=== PATIENT | male | born 1980 | race Caucasian/White ===

== ENCOUNTER 2017-04-25 06:16 | Emergency (ER) | payer MEDICAID ==
[2017-04-25 07:44] LABS: BASOPHIL % 0.6 % (0-2); PLATELET COUNT 338 x10^3mcL (130-400); RED CELL DISTRIBUTION WIDTH 14.3 % (11.5-14.5)
[2017-04-25 07:51] LABS: CALCIUM 8.8 mg/dL (8.5-10.1); CARBON DIOXIDE 31.2 mmol/L (21-32); CHLORIDE SERUM 100 mmol/L (98-107); CREATININE SERUM 1.1 mg/dL (0.7-1.3); GFR1 > 60 mL/min; GLUCOSE SERUM 114 mg/dL (74-106); POTASSIUM SERUM 3.6 mmol/L (3.5-5.1); SODIUM SERUM 140 mmol/L (136-145)
[2017-04-25 09:00] VITALS: BP 139/99
== END 2017-04-25 09:00 | disposition home or self-care (01) ==
LOC: ED 06:16
PROVIDERS: Emergency Medicine
DX: K52.9 Noninfective gastroenteritis and colitis, unspecified (principal); Z88.0 Allergy status to penicillin
CPT/HCPCS: 36415; J1885

== ENCOUNTER 2017-09-12 22:27 | Emergency (ER) | payer MEDICAID ==
[~2017-09-12] VITALS: Ht 180.3 cm; Wt 81.6 kg
[2017-09-12 23:21] VITALS: BP 124/67
== END 2017-09-12 23:21 | disposition home or self-care (01) ==
LOC: ED 22:27
DX: S39.012A Strain of muscle, fascia and tendon of lower back, initial encounter (principal); Z90.49 Acquired absence of other specified parts of digestive tract; Z88.0 Allergy status to penicillin; F17.210 Nicotine dependence, cigarettes, uncomplicated; X58.XXXA Exposure to other specified factors, initial encounter; Y93.I9 Activity, other involving external motion; Y92.488 Other paved roadways as the place of occurrence of the external cause; Y99.8 Other external cause status
CPT/HCPCS: 99406; J1885; J2270

== ENCOUNTER 2018-04-06 05:00 | Emergency (ER) | payer MEDICAID ==
[~2018-04-06] VITALS: Ht 180.3 cm; Wt 80.3 kg
[2018-04-06 05:12] VITALS: Ht 180.3 cm; Wt 80.3 kg
[2018-04-06 08:18] VITALS: BP 139/89
== END 2018-04-06 08:18 | disposition home or self-care (01) ==
LOC: ED 05:00
DX: S86.912A Strain of unspecified muscle(s) and tendon(s) at lower leg level, left leg, initial encounter (principal); S39.012A Strain of muscle, fascia and tendon of lower back, initial encounter; Z90.89 Acquired absence of other organs; Z88.0 Allergy status to penicillin; V49.9XXA Car occupant (driver) (passenger) injured in unspecified traffic accident, initial encounter; Y93.55 Activity, bike riding; Y92.830 Public park as the place of occurrence of the external cause; Y99.8 Other external cause status
CPT/HCPCS: J1885

== ENCOUNTER 2018-07-02 23:18 | Emergency (ER) | payer MEDICAID ==
[~2018-07-02] VITALS: Ht 180.3 cm; Wt 78.9 kg
[2018-07-02 23:24] VITALS: Ht 180.3 cm; Wt 78.9 kg
[2018-07-03 00:37] VITALS: BP 108/74
== END 2018-07-03 00:37 | disposition home or self-care (01) ==
LOC: ED 23:18
DX: L02.31 Cutaneous abscess of buttock (principal); F11.90 Opioid use, unspecified, uncomplicated; Z90.89 Acquired absence of other organs; Z98.890 Other specified postprocedural states; Z59.0 Homelessness; Z88.0 Allergy status to penicillin
CPT/HCPCS: J2001

== ENCOUNTER 2018-07-06 14:26 | Emergency (ER) | payer MEDICAID ==
[~2018-07-06] VITALS: Ht 180.3 cm; Wt 77.6 kg
[2018-07-06 14:37] VITALS: BP 119/71; Ht 180.3 cm; Wt 77.6 kg
== END 2018-07-06 15:46 | disposition home or self-care (01) ==
LOC: ED 14:26
DX: L02.31 Cutaneous abscess of buttock (principal); Z90.89 Acquired absence of other organs; Z60.2 Problems related to living alone; Z88.0 Allergy status to penicillin

== ENCOUNTER 2019-11-01 22:37 | Emergency (ER) | payer MEDICAID ==
[~2019-11-01] VITALS: Ht 180.3 cm; Wt 81.6 kg
[2019-11-01 22:46] VITALS: Ht 180.3 cm; Wt 81.6 kg
[2019-11-02 01:41] LABS: BASOPHIL % 2.1 % (0-2); PLATELET COUNT 421 x10^3mcL (130-400); RED CELL DISTRIBUTION WIDTH 16.4 % (11.5-14.5)
[2019-11-02 01:50] LABS: CALCIUM 8.8 mg/dL (8.5-10.1); CARBON DIOXIDE 23.8 mmol/L (21-32); CREATININE SERUM 1.4 mg/dL (0.7-1.3); POTASSIUM SERUM 3.8 mmol/L (3.5-5.1)
[2019-11-02 01:55] LABS: BILIRUBIN TOTAL 0.42 mg/dL (0.20-1.00)
[2019-11-02 01:58] LABS: ALBUMIN 3.3 g/dL (3.4-5.0); TOTAL PROTEIN, SERUM 8.4 g/dL (6.4-8.2)
[2019-11-02 03:19] VITALS: BP 124/78
== END 2019-11-02 03:19 | disposition home or self-care (01) ==
LOC: ED 22:37
PROVIDERS: Student in an Organized Health Care Education/Training Program
DX: M54.42 Lumbago with sciatica, left side (principal); M54.41 Lumbago with sciatica, right side; L03.115 Cellulitis of right lower limb; F17.210 Nicotine dependence, cigarettes, uncomplicated; Z90.89 Acquired absence of other organs; Z88.0 Allergy status to penicillin
CPT/HCPCS: J1885; Q9967